=== PATIENT | male | born 1985 | race Caucasian/White ===

== ENCOUNTER 2016-10-03 18:41 | Emergency (ER) | payer OTHER ==
[~2016-10-03] VITALS: Ht 182.9 cm; Wt 7.3 kg
[2016-10-03 18:51] VITALS: BP 131/89; PULSE 77; RESP 16; O2SAT 100
--- NOTE | 2016-10-03 19:43 | ED.REPORT ---
HPI-General Illness Date of Service Oct 03, 2016 ED Provider: Filemon Bustos PA-C Bennett is an otherwise healthy 31-year-old male who presents with chief complaint of finger laceration. Patient states that he cut his left index finger on a baking matos approximately one hour ago while at work. States that he is not up-to-date on his tetanus shot. Denies pain, bleeding/clotting disorder or other symptoms Nursing Notes Stated Complaint: FINGER LACERATION Chief Complaint: Laceration Nursing Notes Reviewed: Yes Allergies: Coded Allergies: No Known Allergies (Unverified , 10/03/16) General Time Seen by MD: 19:03 Chief Complaint Laceration Past Medical History Past Medical History Notes: Denies Review of Systems Negative unless stated otherwise in history of present illness Physical Exam General: Well appearing, well developed, well nourished, no acute distress. Head: Atraumatic, normocephalic. Eyes: No scleral icterus or injection. No discharge. Vision grossly intact. ENT: Voice clear, hearing grossly intact. Skin: Warm and dry. 1 cm laceration radial aspect of the distal right first digit. Neurovascularly intact distal to injury. Full range of motion and strength in DIP joint Neurological: Grossly nonfocal. Psychological: alert and oriented. Speech appropriate, linear and logical. Behavior appropriate. Vital Signs Vital Signs Date Time Temp Pulse Resp B/P Pulse Ox O2 Delivery O2 Flow Rate FiO2 10/03/16 20:29 36.4 77 16 131/89 100 Room Air 10/03/16 18:51 36.4 77 16 131/89 100 Room Air Initial VS: Reviewed, Vital signs normal Procedures Laceration Management Laceration Management: Digital block and suturing performed by fourth year medical student under my supervision. Procedure Performed by: Allied health pract Consent / Setup / Site Prep: Informed consent provided, Consent from patient , Hand hygiene observed, Stand sterile technique Wound Length: 1 cm Local Anesthesia: Lidocaine 1%, 5cc, 27g needle Digit Involved: Index finger left Wound Preparation: Normal saline Repair Skin: Nylon (4-0) Suture Technique: Simple Post-Procedure / Complications: Antibiotic oint applied, Dressing applied, No complications, Condition improved, Tolerated procedure well, Patient stable Re-Eval/Medical Decision Med Decision/Clinical Course Otherwise healthy 31-year-old male presents with a 1 cm laceration on his left index finger, neurovascularly intact distal to the injury, a fourth year medical student cleaned and sutured and dressed the wound under my supervision. Provided wound care instructions , follow-up instructions, return precautions Discharge & Departure Primary Impression: Laceration Disposition: Home Discharge Condition All VS Reviewed: Yes Condition: Stable Patient Instructions: Suture Care (ED) Additional Instructions: Evaluation for left finger laceration emergency department. This is straightforward laceration with complications, neurovascularly intact. We performed a digital block to numb the finger, closed laceration with 3 stitches and dressed the wound. Keep the wound clean and dry for 24 hours. After that you can change the dressing, apply antibiotic ointment and wash with soap and water. Unfortunately you will not be able wash dishes or submerge the hand until the stitches are removed in 1 week. The pain is best treated with 400 mg of ibuprofen (Advil, Motrin) every 6 hours, or 1000 mg of acetaminophen (Tylenol ) every 6 hours. These drugs can be taken at the same time for more severe pain. Follow-up with either your primary care provider or here in the department in 1 week to have the stitches removed. Follow-up with your primary care provider if you notice signs of mild infection such as increasing redness, swelling, pain and the appearance of pus., Return to emergency department for any new or worsening symptoms including fever, feeling ill, abdominal pain, vomiting, weakness. Referrals: Fabio Rosenbaum DO (PCP) EDSupervising Provider for APC: Marianna Lamar MD, Seth PA-C Oct 03, 2016 19:43
[2016-10-03] MEDS ORDERED: TdaP Vaccine 0.5 mL Inj IM ONE (20:10)
[2016-10-03 20:29] VITALS: BP 131/89; PULSE 77; RESP 16; O2SAT 100
== END 2016-10-03 20:29 | disposition home or self-care (01) ==
LOC: SED 18:41
DX: S61.211A Laceration without foreign body of left index finger without damage to nail, initial encounter (principal); W26.8XXA Contact with other sharp object(s), not elsewhere classified, initial encounter; Y93.89 Activity, other specified; Y92.59 Other trade areas as the place of occurrence of the external cause; Y99.0 Civilian activity done for income or pay; Z23 Encounter for immunization